=== PATIENT | male | born 1930 | race Caucasian/White ===

== ENCOUNTER 2016-10-22 07:08 | Inpatient (IN) | payer MEDICARE, BC ==
[~2016-10-22] VITALS: Ht 195.6 cm; Wt 130.0 kg
[~2016-10-22 07:08] MED LIST: COU10 PO; COU25 PO; DUTA0.5C PO; FOL8 PO; HYDR5TAB PO; SYN2 PO
[2016-10-22 08:11] LABS: BASOPHILS % 0.3 % (0.0-2.0); EOSINOPHILS # 0.1 10^3/ul (0.0-0.5); EOSINOPHILS % 0.8 % (0.0-7.0); HEMATOCRIT 50.4 % (42.0-52.0); HEMOGLOBIN 17.1 g/dl (14.0-18.0); LYMPHOCYTES # 1.4 10^3/ul (0.8-2.9); LYMPHOCYTES % 14.8 % (15.0-51.0); MEAN CORPUSCULAR HEMOGLOBIN 32.8 pg (29.0-33.0); MEAN CORPUSCULAR VOLUME 96.5 fl (82.0-101.0); MEAN PLATELET VOLUME 9.8 fl (7.4-10.4); MONOCYTE # 0.7 10^3/ul (0.3-0.9); MONOCYTES % 7.6 % (0.0-11.0); NEUTROPHIL # 7.4 10^3/ul (1.6-7.5); NEUTROPHILS % 76.5 % (39.0-77.0); PLATELET COUNT 184 10^3/UL (140-440); RED BLOOD COUNT 5.22 10^6/ul (4.70-6.10); UNCORRECTED WBC 9.7 10^3/ul (4.8-10.8); WHITE BLOOD COUNT 9.7 10^3/ul (4.8-10.8)
[2016-10-22] MEDS ORDERED: SOD CHLORIDE 0.9% 1,000 ML IV STA (08:15)
[2016-10-22] MEDS ORDERED: ONDANSETRON 4 MG INJ IV STA (08:15)
--- NOTE | 2016-10-22 08:16 | ERA ---
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 He is referred to the ED by his PMD, Dr. Zavaleta. Patient also complains of feeling tired and according to family seems lethargic. He denies chest pain or palpitations. No shortness of breath or cough. Polyuria but no dysuria, hematuria or flank pain. Chronic stable lower extremity swelling but no calf pain. Denies headache, visual changes, focal weakness or numbness. No fevers or chills. ROS All systems reviewed and are negative except as per history of present illness. Medications Home Meds Reported Medications Folic Acid* (Folic Acid*) 0.8 Mg Tablet, 4800 MCG PO DAILY, TAB 08/01/16 Dutasteride* (Avodart*) 0.5 Mg Capsule, 0.5 MG PO DAILY, CAP 08/01/16 Hydrocortisone* (Cortef*) 5 Mg Tab, 30 MG PO DAILY, #180 TAB 08/01/16 Levothyroxine Sodium* (Synthroid*) 200 Mcg Tablet, 200 MCG PO BEFORE BREAKFAST, #30 TAB 08/01/16 Warfarin Sod (Coumadin) 2.5 Mg Tab, 12.5 MG PO SUN,TUE,THUR,SAT, TAB 08/01/16 Warfarin Sodium (Coumadin) 10 Mg Tablet, 10 MG PO MONWEDFRI, TAB 08/01/16 Allergies Allergies: Coded Allergies: neomycin (Verified Allergy, Intermediate, rash, 10/22/16) scaly rash which spreads to body Penicillins (Verified Allergy, Unknown, rash, 10/22/16) Sulfa (Sulfonamide Antibiotics) (Verified Allergy, Unknown, rash, 10/22/16) codeine (Verified Adverse Reaction, Unknown, weakness, 10/22/16) PMhx/Soc Reviewed in chart. As per HPI History of Surgery: Yes (inferiro cavla ligation, tonsillectomy, I and D) Anesthesia Reaction: No Hx Neurological Disorder: Yes (Pituitary tumor bled, pituitary appoplexy) Hx Respiratory Disorders: Yes (PE) Hx Cardiac Disorders: No Hx Psychiatric Problems: No Hx Miscellaneous Medical Probl: Yes (asthma,BLE dermatitis, keratosis) Hx Alcohol Use: No Hx Substance Use: No Hx Tobacco Use: Yes (occasional cigar) Smoking Status: Former smoker FmHx Father: Leukemia. Brother: Coronary artery disease. Physical Exam Vitals Vital Signs Date Time Temp Pulse Resp B/P Pulse Ox O2 Delivery O2 Flow Rate FiO2 10/22/16 10:20 100.2 10/22/16 07:20 98.1 115 18 114/65 97 Room Air 10/22/16 07:09 102.5 130 18 126/69 99 Physical Exam Const: Alert, elderly sleepy but arousable no acute distress. Head: Atraumatic. Eyes: Normal Conjunctiva. Pupils equal reactive to light. Extraocular movements intact. ENT: Normal External Ears, Nose and Mouth. Pharynx is clear, mucous membranes are moist. Neck: Full range of motion.. No JVD. No meningismus. Resp: Breath sounds are equal and clear to auscultation bilaterally Cardio: Regular rate and rhythm, no murmurs. No chest wall tenderness Abd: Soft, non tender, obese, non distended. Normal bowel sounds Skin: No petechiae or rashes Back: No midline or flank tenderness Ext: 2+ bilateral lower extremity swelling but no pitting edema. Neur: Sleepy but arousable. Oriented. Cranial nerves II through XII are grossly intact. No focal deficit observed Psych: Normal Mood and Affect. Patient does not appear anxious or depressed. Result Diagram: 10/23/1636 10/23/1636 Results 24 hrs Laboratory Tests Test 10/22/16 07:20 10/22/16 08:32 10/22/16 09:32 10/22/16 10:00 Alanine Aminotransferase (ALT/SGPT) 43IU/L Albumin 4.2g/dl Albumin/Globulin Ratio 1.31 Alkaline Phosphatase 71IU/L Anion Gap 17 Aspartate Amino Transf (AST/SGOT) 43IU/L Basophils # 0.010^3/ul Basophils % 0.3% Blood Morphology Comment Blood Urea Nitrogen 27mg/dl Calcium Level 8.3mg/dl Carbon Dioxide Level 28mmol/L Chloride Level 103mmol/L Creatinine 1.21mg/dl Direct Bilirubin 0.00mg/dl Eosinophils # 0.110^3/ul Eosinophils % 0.8% Globulin 3.20g/dl Glucose Level 111mg/dl Hematocrit 50.4% Hemoglobin 17.1g/dl Indirect Bilirubin 0.3mg/dl Lipase 90U/L Lymphocytes # 1.410^3/ul Lymphocytes % 14.8% Mean Corpuscular Hemoglobin 32.8pg Mean Corpuscular Hemoglobin Concent 34.0g/dl Mean Corpuscular Volume 96.5fl Mean Platelet Volume 9.8fl Monocytes # 0.710^3/ul Monocytes % 7.6% Neutrophils # 7.410^3/ul Neutrophils % 76.5% Nucleated Red Blood Cells # 0.010^3/ul Nucleated Red Blood Cells % 0.0/100WBC Platelet Count 45015^3/UL Potassium Level 4.2mmol/L Red Blood Count 5.2210^6/ul Red Cell Distribution Width 16.0% Sodium Level 144mmol/L Total Bilirubin 0.3mg/dl Total Protein 7.4g/dl White Blood Count 9.710^3/ul Activated Partial Thromboplast Time 41.5Sec INR International Normalized Ratio 3.02 Prothrombin Time 31.7Sec Prothrombin Time Ratio 2.5 Free Thyroxine 1.31ng/dl Thyroid Stimulating Hormone (TSH) 0.318MIU/L Troponin I 0.049ng/ml Lactic Acid Level 1.9mmol/L Urine Bilirubin NEGATIVE Urine Clarity CLEAR Urine Color LT. YELLOW Urine Glucose NEGATIVE% Urine Hemoglobin NEGATIVE Urine Ketones NEGATIVE Urine Leukocyte Esterase NEGATIVE Urine Nitrite NEGATIVE Urine Specific [place] 1.015 Urine Total Protein NEGATIVE Urine Urobilinogen 0.2 E.U./dL Urine pH 5.5 Current Medications Medications (Trade) Dose Ordered Sig/Salma Route PRN Reason Start Time Stop Time Status Last Admin Dose Admin Sodium Chloride (NS) 1,000 ml @ 1,000 mls/hr Q1H STAT IV 10/22/16 08:15 10/22/16 09:14 DC 10/22/16 08:30 Ondansetron HCl (Zofran Inj) 4 mg ONCE STAT IV 10/22/16 08:15 10/22/16 08:17 DC 10/22/16 08:30 Hydrocortisone (Solu-Cortef) 100 mg ONCE ONCE IV 10/22/16 08:30 10/22/16 08:31 DC 10/22/16 08:30 Sodium Chloride 3940 ml 3,940 ml BOLUS OVER 2 HOURS STAT IV* 10/22/16 09:48 10/22/16 09:52 DC 10/22/16 10:16 Vancomycin HCl 250 ml @ 125 mls/hr ONCE ONCE IVPB 10/22/16 10:00 10/22/16 11:59 DC 10/22/16 11:12 Levofloxacin/ Dextrose (Levaquin 750 Mg/ D5W 150 ml (Pmx)) 150 ml @ 100 mls/hr ONCE ONCE IVPB 10/22/16 10:00 10/22/16 11:29 DC 10/22/16 10:16 RHYTHM STRIP INTERPRETATION: Time: 07:30. Sinus tachycardia. Ventricular rate 118. No ectopy. EKG: TIME: 08: 40. Sinus tachycardia. Ventricular rate 120. MT 248 ms consistent with first-degree AV block. Left anterior hemiblock. No acute ST segment elevation or depression. No ectopy. EP Interpretation: Abnormal EKG. IMAGING: PROCEDURE: XR Chest. CLINICAL INDICATION: Abdominal pain. TECHNIQUE: Single frontal view of the chest was obtained COMPARISON: Chest x-ray August 01, 2016. FINDINGS: There is a suboptimal is peripheral with compressive atelectasis in the bases of the lungs. There are osteophytes in the thoracic spine. The heart is upper limits of normal in size. There is a left-sided aorta. The pulmonary vasculature is normal. The right costophrenic angle is excluded from the field of view. IMPRESSION: 1. Suboptimal respiratory effort with compressive atelectasis in the bases of the lungs. 2. Spondylosis of the thoracic spine. 3. Borderline cardiomegaly. RPTAT:AAJJ Physician Cedric Date Time Electronically viewed and signed by Physician Cedric on 10/22/2016 09:16 JM/ PROCEDURE: CT abdomen and pelvis without IV contrast. CLINICAL INDICATION: Abdominal pain TECHNIQUE: CT scan of the abdomen and pelvis without contrast was performed on the [employer] volumetric [address] scanner. The patient was scanned without intravenous contrast. Coronal and sagittal reformatted images were obtained from the axial source images. The CTDI vol is 21.43 mGy and the DLP is 1336.55 mGy-cm. COMPARISON: 08/02/2016 FINDINGS: CT abdomen: Mild dependent bibasilar atelectasis is seen. The remaining lung bases are clear. The heart size is not enlarged and is without pericardial thickening or effusion. The liver is normal in size and density and is without focal mass or intrahepatic biliary dilatation. The spleen is normal in size and homogeneous in density. The stomach is grossly unremarkable. The pancreas as visualized is normal. The gallbladder is not identified. No common bile duct dilatation is seen. The adrenal glands are symmetric and normal. The kidneys are small in size. A left renal cyst is again seen and is stable. No renal calculus or obstructive uropathy or mass lesion is seen. The aorta is of normal in caliber. 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 Collateral vessels in the intra-abdominal wall are again seen. There is no retroperitoneal lymphadenopathy. The domenico hepatis region is clear. Sigmoid diverticulosis is seen once again without evidence of diverticulitis. The small and remainder of the large bowel and mesentery, as visualized, are otherwise unremarkable. The normal appendix is identified. CT pelvis: The prostate is mildly enlarged. The pelvic sidewalls and inguinal regions are clear. No pelvic mass, lymphadenopathy, or free fluid is seen. No acute inflammation is seen. The urinary bladder is within normal limits. Degenerative spondylosis of the lumbar spine is seen. No osteolytic or osteoblastic lesion is detected. IMPRESSION: 1. 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 2. Sigmoid diverticulosis without evidence of diverticulitis again seen. 3. Status post cholecystectomy again seen. RPTAT: HPNM Physician Godfrey Date Time Electronically viewed and signed by Physician Godfrey on 10/22/2016 09 :23 / PROCEDURE: CT Brain without contrast. CLINICAL INDICATION: Altered mental status TECHNIQUE: Routine CT scan of the brain was performed on a high resolution multi detector scanner without intravenous contrast. One or more of the following dose reduction techniques were used: Automated exposure control; Adjustment of the mA and/or kV according to patient size; Use of iterative reconstruction technique. CTDI = 43 mGy. DLP = 720 mGy-cm. COMPARISON: No prior relevant examinations are available for comparison. FINDINGS: Hemorrhage: No evidence of intracranial hemorrhage. Acute ischemic changes: No evidence of acute ischemic changes. Mass effect/Midline shift: None. Parenchymal volume: Mild central parenchymal volume loss is evident. Ventricular system: Concordant with parenchymal volume. Chronic changes: There are scattered areas of low attenuation change within the supratentorial white matter most compatible with moderate chronic microvascular ischemic changes. Atherosclerotic calcifications of the cavernous portions of both internal carotid arteries are present. Extracranial soft tissues: Unremarkable. Calvarium: No fractures. Paranasal sinuses: Visualized paranasal sinuses are clear. Mastoid air cells: Visualized mastoid air cells are clear. IMPRESSION: No acute intracranial abnormalities. Moderate chronic-appearing microvascular ischemic changes of the supratentorial white matter. MRI of the brain may be useful for further evaluation. 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 No CT evidence of an acute intra-abdominal process including bowel obstruction. Patient found to have a fever of 102.5 with tachycardia and tachypnea consistent with systemic inflammatory response syndrome. No source of infection is identified. Possible viral syndrome. No hypotension and lactate is 1.9. No urinary tract infection. No radiographic evidence of pneumonia. No headache, meningismus or other signs of meningitis or encephalitis hence lumbar puncture is deferred. Solu-Cortef 100 mg IV was given. History of hypothyroidism but no myxedema. Patient be admitted to telemetry for further evaluation and management. Counseled patient and family regarding diagnosis, diagnostic results and plan for admission. CALLS/CONSULTS: Time 08:30, Dr. Zavaleta is at the bedside will admit the patient to telemetry. CALLS/CONSULTS: Dr Rosalinda Reardon. PATIENT CARE TRANSITIONED: Time: 08:30, Dr. Zavaleta. 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 No CT evidence of an acute intra-abdominal process including bowel obstruction. Patient found to have a fever of 102.5 with tachycardia and tachypnea consistent with systemic inflammatory response syndrome. No source of infection is identified. Possible viral syndrome. No hypotension and lactate is 1.9. No urinary tract infection. No radiographic evidence of pneumonia. No headache, meningismus or other signs of meningitis or encephalitis hence lumbar puncture is deferred. Solu-Cortef 100 mg IV was given. History of hypothyroidism but no myxedema. Patient be admitted to telemetry for further evaluation and management. Counseled patient and family regarding diagnosis, diagnostic results and plan for admission. CALLS/CONSULTS: Time 08:30, Dr. Zavaleta is at the bedside will admit the patient to telemetry. CALLS/CONSULTS: Dr Rosalinda Reardon. PATIENT CARE TRANSITIONED: Time: 08:30, Dr. Zavaleta. Departure Diagnosis: Primary Impression: Abdominal pain of unknown etiology Additional Impressions: Fever Qualified Code: R50.9 - Fever, unspecified fever cause Systemic inflammatory response syndrome Panhypopituitarism Hypothyroidism Qualified Code: E03.9 - Hypothyroidism, unspecified type History of pulmonary embolism Factor V Leiden Condition: Serious REGINALDO BRANNON MD Oct 22, 2016 08:16
[2016-10-22 08:20] LABS: ALBUMIN 4.2 g/dl (3.3-4.9)
[2016-10-22 08:21] LABS: POTASSIUM 4.2 mmol/L (3.5-5.1)
[2016-10-22 08:22] LABS: CONDITION 1; LH ANALYZER COMMENTS 1
[2016-10-22 08:23] LABS: ALBUMIN/GLOBULIN RATIO 1.31; BILIRUBIN,INDIRECT 0.3 mg/dl (0-1.1); BILIRUBIN,TOTAL 0.3 mg/dl (0.2-1.3); CREATININE 1.21 mg/dl (0.61-1.24); TOTAL PROTEIN 7.4 g/dl (6.1-8.1)
[2016-10-22 08:24] LABS: CALCIUM 8.3 mg/dl (8.4-10.2)
[2016-10-22] MEDS ORDERED: HYDROCORTISONE 100 MG INJ IV ONE (08:30)
--- NOTE | 2016-10-22 09:17 | RADRPT ---
PROCEDURE: XR Chest. CLINICAL INDICATION: Abdominal pain. TECHNIQUE: Single frontal view of the chest was obtained COMPARISON: Chest x-ray August 01, 2016. FINDINGS: There is a suboptimal is peripheral with compressive atelectasis in the bases of the lungs. There a re osteophytes in the thoracic spine. The heart is upper limits of normal in size. There is a left -sided aorta. The pulmonary vasculature is normal. The right costophrenic angle is excluded from t he field of view. IMPRESSION: 1. Suboptimal respiratory effort with compressive atelectasis in the bases of the lungs. 2. Spondylosis of the thoracic spine. 3. Borderline cardiomegaly. RPTAT:AAJJ Physician Cedric Date Time Electronically viewed and signed by Maurice Olvera Physician on 10/22/2016 09:16 PHILLIP/
--- NOTE | 2016-10-22 09:23 | RADRPT ---
PROCEDURE: CT abdomen and pelvis without IV contrast. CLINICAL INDICATION: Abdominal pain TECHNIQUE: CT scan of the abdomen and pelvis without contrast was performed on the [employer] volumetric [address] scanner. The patient was scanned without intravenous contrast. Coronal and sagittal refo rmatted images were obtained from the axial source images. The CTDI vol is 21.43 mGy and the DLP is 1336.55 mGy-cm. COMPARISON: 08/02/2016 FINDINGS: CT abdomen: Mild dependent bibasilar atelectasis is seen. The remaining lung bases are clear. The heart size i s not enlarged and is without pericardial thickening or effusion. The liver is normal in size and density and is without focal mass or intrahepatic biliary dilatation . The spleen is normal in size and homogeneous in density. The stomach is grossly unremarkable. T he pancreas as visualized is normal. The gallbladder is not identified. No common bile duct dilata tion is seen. The adrenal glands are symmetric and normal. The kidneys are small in size. A left re nal cyst is again seen and is stable. No renal calculus or obstructive uropathy or mass lesion is se en. The aorta is of normal in caliber. 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 Collateral vessels in the intra-abdominal wall are again seen. There is no retroperitoneal lymphad enopathy. The domenico hepatis region is clear. Sigmoid diverticulosis is seen once again without gerry dence of diverticulitis. The small and remainder of the large bowel and mesentery, as visualized, a re otherwise unremarkable. The normal appendix is identified. CT pelvis: The prostate is mildly enlarged. The pelvic sidewalls and inguinal regions are clear. No pelvic ma ss, lymphadenopathy, or free fluid is seen. No acute inflammation is seen. The urinary bladder is within normal limits. Degenerative spondylosis of the lumbar spine is seen. No osteolytic or osteoblastic lesion is detec johanna. IMPRESSION: 1. 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 2. Sigmoid diverticulosis without evidence of diverticulitis again seen. 3. Status post cholecystectomy again seen. RPTAT: HPNM Kvng Mogannam, Physician Date Time Electronically viewed and signed by Kvng Schneider, Physician on 10/22/2016 09:23 /
[2016-10-22] MEDS ORDERED: SODIUM CHLORIDE 0.9% 1L BAG IV* STA (09:48)
[2016-10-22] MEDS ORDERED: VANCOMYCIN 1 GM (PMX) 250 ML IVPB ONE (10:00)
[2016-10-22] MEDS ORDERED: LEVOFLOXACIN 750MG/D5W (PMX) 150 ML IVPB ONE (10:00)
[2016-10-22 10:05] LABS: INR 3.02; PARTIAL THROMBOPLASTIN TIME 41.5 Sec (25.0-35.0); PROTIME 31.7 Sec (12.2-14.2); PT RATIO 2.5
[2016-10-22 10:30] LABS: ADD UMIC NO; URINE BILIRUBIN (Dip) NEGATIVE (NEGATIVE); URINE BLOOD (Dip) NEGATIVE (NEGATIVE); URINE COLOR LT. YELLOW (YELLOW); URINE GLUCOSE (Dip) NEGATIVE (NEGATIVE); URINE KETONES (Dip) NEGATIVE (NEGATIVE); URINE LEUKOCYTE ESTERASE (Dip) NEGATIVE (NEGATIVE); URINE NITRITE (Dip) NEGATIVE (NEGATIVE); URINE TOTAL PROTEIN (Dip) NEGATIVE (NEGATIVE); URINE UROBILINOGEN (Dip) 0.2 E.U./dL (0.1-1.0)
[2016-10-22] MEDS ORDERED: ACETAMINOPHEN 325 MG TAB PO PRN ×2 (11:30→17:30)
[2016-10-22] MEDS ORDERED: ONDANSETRON 4 MG INJ IV PRN ×2 (11:30→17:30)
[2016-10-22] MEDS ORDERED: LEVOTHYROXINE 100 MCG TAB PO ONE (12:00)
[2016-10-22] MEDS ORDERED: WARFARIN 10 MG TAB PO ONE (12:00)
[2016-10-22] MEDS ORDERED: DUTASTERIDE 0.5 MG CAP PO ONE (12:00)
--- NOTE | 2016-10-22 14:40 | RADRPT ---
Echocardiogram Report Patient Name: SHELLY ALCAZAR Gender: Male Date: 1930 Study Date: 22-Oct-2016 Pack Operator: NEFTALY Location: E Ref. Physician: REGINALDO BRANNON Quality: Technically Difficult Study Procedures: Transthoracic echocardiogram with 2D, M-Mode, and Doppler examination, difficult exam patient obese and supine. Indications: Pericarditis. 2D/M Mode Doppler Measurement Value Normal Ranges Measurement Value Normal Ranges LVIDd 2D 2.6 3.5 - 5.6 cm AV Peak Leo 1.1 m/sec LVIDs 2D 1.5 2.1 - 4.1 cm AV Peak PG 5.2 mmHg LVPWd 2D 1.6 0.6 - 1.1 cm LVOT Peak Leo 1.1 m/sec IVSd 2D 1.6 0.6 - 1.1 cm LVOT Peak PG 4.6 mmHg AoR Diam 2D 3.5 2.0 - 3.7 cm EDV 2D 25.6 cm3 ESV 2D 3.1 cm3 LA Dimen 2D 3.5 2.3 - 4.0 cm Findings Left Ventricle: Hyperdynamic left ventricular systolic function. Normal left ventricular cavity size. Moderate concentric left ventricular hypertrophy. Ejection fraction is visually estimated at 70 %. Tissue Doppler/Mitral Doppler indices are indeterminate in this study due to the presence of tachycardia and poor images. Right Ventricle: Normal right ventricular size. Left Atrium: The left atrium is normal in size. Right Atrium: The right atrium is normal in size. Atrial Septum: Normal atrial septum. Mitral Valve: Mitral valve is not well visualized. Mild mitral annular calcification. No mitral valve regurgitation is seen. Aortic Valve: No significant aortic stenosis or insufficiency. Aortic valve not well visualized. Tricuspid Valve: Normal appearance of the tricuspid valve. No evidence of tricuspid regurgitation. Pulmonic Valve: Pulmonic valve not well visualized. Pericardium: Normal pericardium with no significant pericardial effusion. Aorta: Normal aortic root. IVC: Normal size and normal respiratory collapse consistent with normal right atrial pressure. Pulmonary Artery: Not well visualized. Conclusions 1.Hyperdynamic left ventricular systolic function. Normal left ventricular cavity size. Moderate concentric left ventricular hypertrophy. Ejection fraction is visually estimated at 70 %. Tissue Doppler/Mitral Doppler indices are indeterminate in this study due to the presence of tachycardia and poor images. 2.The left atrium is normal in size. 3.Mitral valve is not well visualized. Mild mitral annular calcification. No mitral valve regurgitation is seen. 4.No significant aortic stenosis or insufficiency. Aortic valve not well visualized. 5.Normal appearance of the tricuspid valve. No evidence of tricuspid regurgitation. 6.Normal size and normal respiratory collapse consistent with normal right atrial pressure. Electronically Signed By: Yonathan Roblero 22-Oct-2016 14:39:09 -0800 Patient Name: SHELLY ALCAZAR Study Date: 22-Oct-2016 [id number]
--- NOTE | 2016-10-22 15:28 | RADRPT ---
PROCEDURE: CT Brain without contrast. CLINICAL INDICATION: Altered mental status TECHNIQUE: Routine CT scan of the brain was performed on a high resolution multi detector scanner without intravenous contrast. One or more of the following dose reduction techniques were used: Auto mated exposure control; Adjustment of the mA and/or kV according to patient size; Use of iterative r econstruction technique. CTDI = 43 mGy. DLP = 720 mGy-cm. COMPARISON: No prior relevant examinations are available for comparison. FINDINGS: Hemorrhage: No evidence of intracranial hemorrhage. Acute ischemic changes: No evidence of acute ischemic changes. Mass effect/Midline shift: None. Parenchymal volume: Mild central parenchymal volume loss is evident. Ventricular system: Concordant with parenchymal volume. Chronic changes: There are scattered areas of low attenuation change within the supratentorial white matter most compatible with moderate chronic microvascular ischemic changes. Atherosclerotic calcifications of the cavernous portions of both internal carotid arteries are prese nt. Extracranial soft tissues: Unremarkable. Calvarium: No fractures. Paranasal sinuses: Visualized paranasal sinuses are clear. Mastoid air cells: Visualized mastoid air cells are clear. IMPRESSION: No acute intracranial abnormalities. Moderate chronic-appearing microvascular ischemic changes of the supratentorial white matter. MRI of the brain may be useful for further evaluation. RPTAT: AADD .Casper Grace MD, MD Date Time Electronically viewed and signed by .Casper Grace MD, MD on 10/22/2016 15:28 .B/
[2016-10-22 16:24] VITALS: TEMP 98.5
[2016-10-22 16:42] VITALS: BP 101/59; PULSE 111; RESP 20
[2016-10-22 16:46] VITALS: Ht 195.6 cm; Wt 130.0 kg
[2016-10-22] MEDS ORDERED: DEXTROSE 5%-0.9% NACL 1,000 ML IV SCH ×3 (17:30→20:30)
[2016-10-22] MEDS ORDERED: morphine 2 MG INJ IV PRN (17:30)
[2016-10-22] MEDS: SOD CHLORIDE 0.9% 1,000 ML IV SCH (18:01)
--- NOTE | 2016-10-22 18:21 | CONS ---
DATE OF ADMISSION: 10/22/2016 DATE OF CONSULTATION: 10/22/2016 TYPE OF CONSULTATION: Cardiology. REFERRING PHYSICIAN: Dr. Miguel REASON FOR CONSULTATION: Tachycardia. CHIEF COMPLAINT: Right-sided chest pain and weakness and abdominal pain. HISTORY OF PRESENT ILLNESS: Thank you for this referral. The patient is a good historian, extensiv e review of the old chart. 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 The patient s aid he was having nausea, vomiting, was unable to tolerate food. He started to have a small-bowel o bstruction. He came to emergency room. In the emergency room, he was noted to have a fever of 102. 5. He was also noted to be severely tachycardic, for which I was kindly asked to evaluate. The pat ient denies any left-sided chest pain or pressure to me. Denies any palpitation to me. He said he drinks about 20 cups of coffee a day and also multiple sodas. He has received about 4 liters of nor mal saline and his heart rate has improved. PAST MEDICAL HISTORY: History of nonfunctioning pituitary adenoma, history of apoplexy with resulta nt panhypopituitarism, history of protein C and S deficiency and factor V Leiden mutation, history o f multiple PEs and DVT, history of IVC ligation, history of benign prostatic hypertrophy. SURGICAL HISTORY: Cholecystectomy, bilateral lower extremity vein surgery and ligation. ALLERGIES: 1. PENICILLIN. 2. SULFA DRUGS. 3. CODEINE. 4. NEOMYCIN. MEDICATIONS: As per medical reconciliation, personally reviewed. SOCIAL HISTORY: Patient occasionally uses cigars. 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 Denies any drug abu se to me. FAMILY HISTORY: Patient's father had VT in his 90s. Brother had bypass surgery in his 70s. REVIEW OF SYSTEMS: As above mentioned, denied all other except for above-mentioned. PHYSICAL EXAMINATION: VITAL SIGNS: Temperature ____, T-max is 102.5, heart rate 111, blood pressure 101/59, respiratory r ate of 20. HEENT: Normocephalic, atraumatic. Pupils are equal and round. CARDIOVASCULAR: Tachycardic, systolic murmur. PULMONARY: Anteriorly with no wheezes. GASTROINTESTINAL: Soft. No rebound or guarding. EXTREMITIES: Positive diffuse lower extremity edema. DERMATOLOGIC: Positive hyperpigmentation of lower extremities. NEUROLOGIC: Awake, alert x3, nonfocal. PSYCHIATRIC: Calm and very pleasant. LABORATORY: Abdominal pelvis CT shows significant narrowing of IVC, sigmoid diverticulosis without evidence of diverticulitis. Status post cholecystectomy. Chest x-ray shows respiratory with compr ession atelectasis. Echocardiogram was personally reviewed, which shows ejection fraction of at [address] st 70%. IVC appeared to be normal in size. No significant valvular disease noted. EKG shows sinus tachycardia with first degree AV block. Poor R-wave progression. Rhythm strip shows what appeared to be sinus tachycardia with a Mobitz I AV block. ____was negative. ASSESSMENT AND PLAN: 1. Sinus tachycardia, multifactorial secondary to dehydration. 2. Fever, dehydration, possible sepsis. 3. History of recurrent PE and DVT. 4. 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 5. Factor V Leiden deficiency. 6. Panhypopituitarism. 7. Renal insufficiency, probably dehydration. RECOMMENDATIONS: Thyroid management and pituitary management as per internal medicine and possible endocrine consultation. Coumadin to be continued. He has received a dose today. INR will be check ed tomorrow again. I will start the patient on IV fluid with normal saline maintenance. Antibiotic as per internal medicine as needed. He has received a dose of Levaquin in the emergency room. Thank you for this referral. We will continue to follow along with you. Dictated By: GUILLERMO CORDERO MD AV/SHALA Conf#: [id number] DID#: [id number] CC: ADRIA MIGUEL MD;*EndCC*
--- NOTE | 2016-10-22 18:47 | CONS ---
Date/Time of Note Date/Time of Note DATE: 10/22/16 TIME: 18:39 Assessment/Plan Assessment/Plan Chief Complaint/Hosp Course ASSESSMENT 1. nausea vomiting: CT r/o SBO. likely gastroenteritis. 2. Sinus tachycardia, multifactorial secondary to dehydration. 3. Fever, dehydration, possible sepsis: possibly related to #1. 4. 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 5. Factor V Leiden deficiency. 6. Panhypopituitarism. 7. Renal insufficiency, probably dehydration. 8. History of recurrent PE and DVT. RECOMMENDATIONS: - advance diet as tolerated - no plan for procedure from GI perspective so ok to restart coumadin and other anti-coagulations. - Thyroid management and pituitary management as per internal medicine and possible endocrine consultation. - Antibiotic as per internal medicine as needed. - ok from GI perspective to dc tomorrow if continue to do well and tolerates PO if ok with primary and other consultants. 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 No cp, sob. Due to his multiple previous history of abdominal surgery, he was worried about SBO so he came to emergency room. In the emergency room, he was noted to have a fever of 102.5. He was also noted to be severely tachycardic. The patient denies any left-sided chest pain or pressure to me. Denies any palpitation to me. He said he drinks about 20 cups of coffee a day and also multiple sodas. He has received about 4 liters of normal saline and his heart rate has improved. No melena, BRBPR, coffee ground emesis, headache, skin rash. All point ROS administered, pertinent positives and negatives in HPI otherwise negative. Past Medical History nonfunctioning pituitary adenoma, h/o apoplexy with resultant panhypopituitarism , h/o protein C and S deficiency, h/o factor V Leiden mutation, h/o multiple PEs and DVT, h/o IVC ligation, BPH Past Surgical History Past Surgical Hx: cholecystectomy, other (b/l lower extremity vein surgery and ligation) Family History Significant Family History: heart disease Social History Alcohol Use: occasionally Smoking Status: Former smoker Drug Use: none Exam/Review of Systems Vital Signs Vitals Vital Signs Date Time Temp Pulse Resp B/P Pulse Ox O2 Delivery O2 Flow Rate FiO2 10/22/16 16:42 97.7 111 20 101/59 94 Room Air Exam Constitutional: alert, oriented, well developed Psych: nl mood/affect, no complaints Head: atraumatic, normocephalic Eyes: EOMI, nl conjunctiva, nl lids, nl sclera ENMT: mucosa pink and moist, nl external ears & nose, nl lips & teeth, nl nasal mucosa & septum Neck: non-tender, supple Respiratory: clear to auscultation, normal air movement Cardiovascular: nl pulses, regular rate and rhythm Gastrointestinal: nl liver, spleen, non-tender, soft Neurological: nl mental status, nl speech, nl strength Results Result Diagram: 10/22/16 0720 10/22/16 0720 Results 24 hrs Laboratory Tests Test 10/22/16 07:20 10/22/16 08:32 10/22/16 09:32 10/22/16 10:00 Alanine Aminotransferase (ALT/SGPT) 43 Albumin 4.2 Albumin/Globulin Ratio 1.31 Alkaline Phosphatase 71 Anion Gap 17 H Aspartate Amino Transf (AST/SGOT) 43 Basophils # 0.0 Basophils % 0.3 Blood Morphology Comment Blood Urea Nitrogen 27 H Calcium Level 8.3 L Carbon Dioxide Level 28 Chloride Level 103 Creatinine 1.21 Direct Bilirubin 0.00 Eosinophils # 0.1 Eosinophils % 0.8 Globulin 3.20 Glucose Level 111 Hematocrit 50.4 Hemoglobin 17.1 # Indirect Bilirubin 0.3 Lipase 90 Lymphocytes # 1.4 Lymphocytes % 14.8 L Mean Corpuscular Hemoglobin 32.8 Mean Corpuscular Hemoglobin Concent 34.0 Mean Corpuscular Volume 96.5 Mean Platelet Volume 9.8 Monocytes # 0.7 Monocytes % 7.6 Neutrophils # 7.4 Neutrophils % 76.5 Nucleated Red Blood Cells # 0.0 Nucleated Red Blood Cells % 0.0 Platelet Count 184 # Potassium Level 4.2 Red Blood Count 5.22 Red Cell Distribution Width 16.0 H Sodium Level 144 Total Bilirubin 0.3 Total Protein 7.4 White Blood Count 9.7 Activated Partial Thromboplast Time 41.5 H INR International Normalized Ratio 3.02 Prothrombin Time 31.7 #H Prothrombin Time Ratio 2.5 Free Thyroxine 1.31 Thyroid Stimulating Hormone (TSH) 0.318 L Troponin I 0.049 Lactic Acid Level 1.9 Urine Bilirubin NEGATIVE Urine Clarity CLEAR Urine Color LT. YELLOW Urine Glucose NEGATIVE Urine Hemoglobin NEGATIVE Urine Ketones NEGATIVE Urine Leukocyte Esterase NEGATIVE Urine Nitrite NEGATIVE Urine Specific [place] 1.015 Urine Total Protein NEGATIVE Urine Urobilinogen 0.2 E.U./dL Urine pH 5.5 Test 10/22/16 12:10 10/22/16 14:20 Lactic Acid Level 2.2 1.8 Medications Medications Current Medications Hydrocortisone (Solu-Cortef) 50 mg Q12 IV ; Start 10/22/16 at 21:00 Pantoprazole (Protonix Iv) 40 mg DAILY@06 IV ; Start 10/23/16 at 06:00 Levothyroxine Sodium (Synthroid Iv) 100 mcg DAILY@06 IV ; Start 10/23/16 at 06: 00 Ondansetron HCl 4 mg 4 mg Q6H PRN IV NAUSEA AND/OR VOMITING; Start 10/22/16 at 17:30 Metronidazole 100 ml @ 100 mls/hr Q8 IVPB ; Start 10/22/16 at 22:00; Stop 10/27 at 14:59 Ciprofloxacin/ Dextrose (Cipro Ivpb) 200 ml @ 200 mls/hr Q12 IVPB ; Start 10/22 at 21:00; Stop 11/01/16 at 09:59 Acetaminophen (Tylenol Tab) 650 mg Q6H PRN PO PAIN AND OR ELEVATED TEMP; Start 10/22/16 at 17:30 Morphine Sulfate 2 mg 2 mg Q4H PRN IV pain; Start 10/22/16 at 17:30 Sodium Chloride (NS) 1,000 ml @ 125 mls/hr Q8H IV Last administered on t 18:01; Admin Dose 125 MLS/HR; Start 10/22/16 at 17:30 Warfarin Sodium (Coumadin) 10 mg DAILY@17 PO ; Start 10/23/16 at 17:00 ROD MICHELLE MD Oct 22, 2016 18:47
[2016-10-22 19:16] VITALS: BP 100/45; RESP 18
[2016-10-22] MEDS: metroNIDAZOLE 500 MG/NS (PMX) 100 ML IVPB SCH (21:46)
[2016-10-22] MEDS: CIPROFLOXACIN 400MG/D5W 200 ML IVPB SCH (21:46)
[2016-10-22] MEDS: HYDROCORTISONE 100 MG INJ IV SCH (21:47)
[2016-10-22 23:32] VITALS: BP 86/42; RESP 22
[2016-10-23] MEDS: SOD CHLORIDE 0.9% 1,000 ML IV SCH ×2 (01:30→09:30)
[2016-10-23 03:42] VITALS: BP 95/44; RESP 22
[2016-10-23] MEDS: metroNIDAZOLE 500 MG/NS (PMX) 100 ML IVPB SCH (05:59)
[2016-10-23] MEDS ORDERED: PANTOPRAZOLE 40 MG INJ IV SCH (06:00)
[2016-10-23] MEDS ORDERED: LEVOTHYROXINE 100 MCG VIAL IV SCH (06:00)
[2016-10-23 07:25] LABS: INR 2.64; PROTIME 28.5 Sec (12.2-14.2); PT RATIO 2.2
[2016-10-23 07:26] LABS: ALBUMIN 3.1 g/dl (3.3-4.9)
[2016-10-23 07:28] LABS: BILIRUBIN,INDIRECT 0.2 mg/dl (0-1.1); BILIRUBIN,TOTAL 0.2 mg/dl (0.2-1.3); CREATININE 0.92 mg/dl (0.61-1.24)
[2016-10-23 07:29] LABS: ALBUMIN/GLOBULIN RATIO 1.14; CALCIUM 6.9 mg/dl (8.4-10.2); TOTAL PROTEIN 5.8 g/dl (6.1-8.1)
[2016-10-23 07:30] LABS: MAGNESIUM 1.9 mg/dl (1.7-2.5)
[2016-10-23 07:34] LABS: BASOPHILS % 0.3 % (0.0-2.0); EOSINOPHILS % 0.1 % (0.0-7.0); HEMATOCRIT 42.2 % (42.0-52.0); HEMOGLOBIN 14.5 g/dl (14.0-18.0); LYMPHOCYTES # 0.9 10^3/ul (0.8-2.9); LYMPHOCYTES % 15.1 % (15.0-51.0); MEAN CORPUSCULAR HGB CONC 34.3 g/dl (32.0-37.0); MEAN CORPUSCULAR VOLUME 96.2 fl (82.0-101.0); MEAN PLATELET VOLUME 9.8 fl (7.4-10.4); MONOCYTE # 0.4 10^3/ul (0.3-0.9); MONOCYTES % 5.9 % (0.0-11.0); NEUTROPHIL # 4.8 10^3/ul (1.6-7.5); NEUTROPHILS % 78.6 % (39.0-77.0); PLATELET COUNT 144 10^3/UL (140-440); RED BLOOD COUNT 4.39 10^6/ul (4.70-6.10); RED CELL DISTRIBUTION WIDTH 16.2 % (11.5-14.5); UNCORRECTED WBC 6.1 10^3/ul (4.8-10.8); WHITE BLOOD COUNT 6.1 10^3/ul (4.8-10.8)
[2016-10-23 07:40] LABS: CONDITION 1; LH ANALYZER COMMENTS 1
[2016-10-23 07:49] LABS: CHOL/HDL RATIO 3.3 RATIO
[2016-10-23 07:50] VITALS: BP 95/51; RESP 20
[2016-10-23] MEDS: HYDROCORTISONE 100 MG INJ IV SCH (08:21)
[2016-10-23] MEDS: CIPROFLOXACIN 400MG/D5W 200 ML IVPB SCH (08:21)
[2016-10-23] MEDS ORDERED: ENOXAPARIN 60 MG/0.6 ML SYG SC ONE (09:00)
--- NOTE | 2016-10-23 12:09 | CONS ---
Date/Time of Note Date/Time of Note DATE: 10/23/16 TIME: 12:08 Assessment/Plan Assessment/Plan Chief Complaint/Hosp Course ASSESSMENT 1. nausea vomiting: CT r/o SBO. likely gastroenteritis. Resolved. 2. Sinus tachycardia, multifactorial secondary to dehydration. Resolved. 3. Fever, dehydration, possible sepsis: related to #1. Improved 4. 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 5. Factor V Leiden deficiency. 6. Panhypopituitarism. 7. Renal insufficiency, probably dehydration. 8. History of recurrent PE and DVT. RECOMMENDATIONS: - advance diet as tolerated - no plan for procedure from GI perspective so ok to restart coumadin and other anti-coagulations. - Thyroid management and pituitary management as per internal medicine and possible endocrine consultation. - Antibiotic as per internal medicine as needed. - ok from GI perspective to oh home if ok with primary and other consultants. Problems: Consultation Date/Type/Reason Admit Date/Time Oct 22, 2016 at 11:10 Initial Consult Date 10/22/16 Type of Consultation: GI 24 HR Interval Summary Free Text/Dictation no n/v, tolerated po Constitutional: improved Exam/Review of Systems Vital Signs Vitals Vital Signs Date Time Temp Pulse Resp B/P Pulse Ox O2 Delivery O2 Flow Rate FiO2 10/23/16 07:50 98.2 64 20 95/51 95 10/22/16 16:42 Room Air Intake and Output 10/22/16 10/22/16 10/23/16 15:00 23:00 07:00 Intake Total 4040 ml 250 ml 1900 ml Balance 4040 ml 250 ml 1900 ml Exam Constitutional: alert, oriented, well developed Psych: nl mood/affect, no complaints Head: atraumatic, normocephalic Eyes: EOMI, nl conjunctiva, nl lids, nl sclera ENMT: mucosa pink and moist, nl external ears & nose, nl lips & teeth, nl nasal mucosa & septum Neck: non-tender, supple Respiratory: clear to auscultation, normal air movement Cardiovascular: nl pulses, regular rate and rhythm Gastrointestinal: bowel sounds, non-tender, soft Results Result Diagram: 10/23/16 0636 10/23/16 0636 Results 24 hrs Laboratory Tests Test 10/22/16 12:10 10/22/16 14:20 10/23/16 06:36 Lactic Acid Level 2.2 1.8 Alanine Aminotransferase (ALT/SGPT) 38 Albumin 3.1 #L Albumin/Globulin Ratio 1.14 Alkaline Phosphatase 46 Anion Gap 15 Aspartate Amino Transf (AST/SGOT) 39 Basophils # 0.0 Basophils % 0.3 Blood Morphology Comment Blood Urea Nitrogen 17 # Calcium Level 6.9 L Carbon Dioxide Level 22 Chloride Level 111 H Cholesterol Level 156 Cholesterol/HDL Ratio 3.3 Creatinine 0.92 Direct Bilirubin 0.00 Eosinophils # 0.0 Eosinophils % 0.1 Globulin 2.70 Glucose Level 123 HDL Cholesterol 46 Hematocrit 42.2 Hemoglobin 14.5 INR International Normalized Ratio 2.64 Indirect Bilirubin 0.2 LDL Cholesterol, Calculated 92 Lymphocytes # 0.9 Lymphocytes % 15.1 Magnesium Level 1.9 Mean Corpuscular Hemoglobin 33.0 Mean Corpuscular Hemoglobin Concent 34.3 Mean Corpuscular Volume 96.2 Mean Platelet Volume 9.8 Monocytes # 0.4 Monocytes % 5.9 Neutrophils # 4.8 Neutrophils % 78.6 H Nucleated Red Blood Cells # 0.0 Nucleated Red Blood Cells % 0.0 Platelet Count 144 # Potassium Level 4.0 Prothrombin Time 28.5 H Prothrombin Time Ratio 2.2 Red Blood Count 4.39 L Red Cell Distribution Width 16.2 H Sodium Level 144 Thyroid Stimulating Hormone (TSH) 0.129 L Total Bilirubin 0.2 Total Protein 5.8 #L Triglycerides Level 91 White Blood Count 6.1 # ROD MICHELLE MD Oct 23, 2016 12:09
[2016-10-23] MEDS ORDERED: WARFARIN 10 MG TAB PO SCH (17:00)
[2016-10-24] MEDS ORDERED: ENOXAPARIN 40 MG/0.4 ML SYG SC SCH (09:00)
== END 2016-10-23 10:30 | disposition home or self-care (01) | DRG 391 ==
LOC: E/R 07:08 → TEL 11:10
DX: K52.9 Noninfective gastroenteritis and colitis, unspecified (principal); I82.221 Chronic embolism and thrombosis of inferior vena cava; K56.60 Unspecified intestinal obstruction; D68.51 Activated protein C resistance; R65.10 Systemic inflammatory response syndrome (SIRS) of non-infectious origin without acute organ dysfunction; E86.0 Dehydration; R50.9 Fever, unspecified; E23.0 Hypopituitarism; Z79.02 Long term (current) use of antithrombotics/antiplatelets; E03.9 Hypothyroidism, unspecified; E78.5 Hyperlipidemia, unspecified; R11.0 Nausea; I44.0 Atrioventricular block, first degree; Z86.711 Personal history of pulmonary embolism; R10.9 Unspecified abdominal pain
CPT/HCPCS: 36415; 70450; 71010; 74176; 80053; 80061; 81003; 83605; 83690; 83735; 84439; 84443; 84484; 85025; 85610; 85730; 87040; 87086; 87400; 93005; 93306; 96374; 96375; A4310; C9113; J0744; J1720; J1956; J2405; J3370; J7030; J7042